=== PATIENT | male | born 1935 | race Asian ===

== ENCOUNTER → 2016-10-26 | Outpatient (CLI) | payer OTHER, BC | LOC: BMCIMAGING 11:25 | PROVIDERS: ATTEND Emergency Medicine | DX: S99.921A Unspecified injury of right foot, initial encounter (principal) ==

== ENCOUNTER → 2016-12-15 | Outpatient (CLI) | payer OTHER, BC | LOC: FIMAGING 15:24 | PROVIDERS: ATTEND Internal Medicine | DX: N28.1 Cyst of kidney, acquired (principal); N42.9 Disorder of prostate, unspecified ==

== ENCOUNTER → 2017-01-13 | Outpatient (CLI) | payer OTHER, BC | LOC: BHFA 09:15 | PROVIDERS: ATTEND Internal Medicine Cardiovascular Disease | DX: I48.91 Unspecified atrial fibrillation (principal) ==

== ENCOUNTER → 2017-03-11 | Outpatient (CLI) | payer OTHER, BC | LOC: FIMAGING 14:24 | PROVIDERS: ATTEND Orthopaedic Surgery | DX: S52.201A Unspecified fracture of shaft of right ulna, initial encounter for closed fracture (principal); M19.031 Primary osteoarthritis, right wrist ==

== ENCOUNTER → 2017-04-10 | Outpatient (CLI) | payer OTHER, BC | LOC: FIMAGING 10:29 | PROVIDERS: ATTEND Internal Medicine | DX: N42.83 Cyst of prostate (principal); R30.0 Dysuria; R35.0 Frequency of micturition ==

== ENCOUNTER → 2018-06-30 | Outpatient (CLI) | payer OTHER, BC | LOC: BMCIMAGING 13:35 | PROVIDERS: ATTEND Physician Assistant | DX: M79.645 Pain in left finger(s) (principal); M18.9 Osteoarthritis of first carpometacarpal joint, unspecified ==